=== PATIENT | female | born 1985 | race Caucasian/White ===

== ENCOUNTER 2019-09-30 14:14 | Outpatient (CLI) | payer OTHER, SELFPAY ==
--- NOTE | ~2019-09-30 | MM_ITS ---
EXAMINATION: MM screening roel BI w didi HISTORY: Screening mammogram TECHNIQUE: Craniocaudal and mediolateral oblique 3-D tomosynthesis images were obtained and synthetic 2-D images were generated. CAD analysis was submitted and interpreted. COMPARISON: No prior mammogram is available for comparison at this institution. BREAST PARENCHYMAL COMPOSITION: There are scattered areas of fibroglandular density. FINDINGS: There is a focal asymmetry in the lower inner quadrant of the left breast anteriorly. There is no mammographic evidence for malignancy in the right breast. IMPRESSION: 1. Focal left breast asymmetry. 2. Additional mammographic views and possible breast ultrasound are recommended. BI-RADS Category 0: Incomplete: Needs additional imaging evaluation. Reviewed, dictated and finalized at location A. IMPRESSION: 1. Focal left breast asymmetry. 2. Additional mammographic views and possible breast ultrasound are recommended . BI-RADS Category 0: Incomplete: Needs additional imaging evaluation.
== END 2019-09-30 14:15 | disposition home or self-care (01) ==
PROVIDERS: PCP Family Medicine; Visit Provider Surgery Plastic and Reconstructive Surgery
DX: Z12.31 Encounter for screening mammogram for malignant neoplasm of breast (principal); R92.8 Other abnormal and inconclusive findings on diagnostic imaging of breast
CPT/HCPCS: 77063; 77067

== ENCOUNTER 2019-10-04 11:45 | Outpatient (CLI) | payer OTHER, SELFPAY ==
--- NOTE | ~2019-10-04 | MMUS_ITS ---
EXAMINATION: MM diagnostic mammo unilat LT, US breast LT limited HISTORY: 09/30/2019 screening mammogram report of focal asymmetry in the lower inner quadrant of left b reast anteriorly TECHNIQUE: Additional 3-D tomosynthesis images of the left breast were performed and synthetic 2-D im ages were generated. Rolled medial craniocaudal and rolled lateral craniocaudal views. CAD analysis w as submitted and interpreted. High resolution upper inner and lower inner quadrant left breast ultras ound was performed. COMPARISON: 09/30/2019 bilateral digital screening mammogram FINDINGS: MAMMOGRAPHIC FINDINGS: No reproducible mass or architectural distortion is detected. ULTRASOUND: There is no evidence of focal abnormal solid or cystic lesion in the vicinity of the 09/30/2019 screeni ng mammogram report of abnormality in the anterior aspect of the lower inner quadrant of the left mao ast IMPRESSION: 1. No mammographic evidence of malignancy 2. Routine mammographic screening is recommended BI-RADS Category 1: Negative Reviewed, dictated and finalized at location A. IMPRESSION: 1. No mammographic evidence of malignancy 2. Routine mammographic screening is recommended BI-RADS Category 1: Negative
== END 2019-10-04 11:46 | disposition home or self-care (01) ==
LOC: ANHIMG 11:46
PROVIDERS: PCP Family Medicine; Visit Provider Surgery Plastic and Reconstructive Surgery
DX: N64.4 Mastodynia (principal); N62 Hypertrophy of breast
CPT/HCPCS: 76642; 77065

== ENCOUNTER 2019-10-12 00:20 | Outpatient (CLI) | payer OTHER, SELFPAY | END 2019-10-12 00:21 | disposition home or self-care (01) | LOC: ANHCOVIDDT 00:20 | PROVIDERS: PCP Family Medicine; Visit Provider Surgery Plastic and Reconstructive Surgery | DX: Z01.812 Encounter for preprocedural laboratory examination (principal); N62 Hypertrophy of breast; Z11.59 Encounter for screening for other viral diseases | CPT/HCPCS: 87635; C9803; U0003 ==

== ENCOUNTER 2019-10-15 01:28 | Day surgery (SDC) | payer OTHER, SELFPAY ==
[2019-10-08 17:33] VITALS: BMI 34.0
[2019-10-15] VITALS (10 sets, daily range): BP systolic 117–147; BP diastolic 63–106; PULSE 95–102; RESP 16–20; TEMP 36.4–36.8; O2SAT 95–99
[2019-10-15] MEDS: LACTATED RINGERS 1,000 ML 30 ML IV CONT ×2 (11:35→16:58)
[2019-10-15 11:47] LABS: Urine Cotinine NEGATIVE
--- NOTE | 2019-10-15 13:33 | WPDHPUPDATE1 ---
History and Physical Update Update Date/Time: 10/15/19 13:33 History and Physical has been reviewed, including an updated exam of the patient. There are NO changes in the patient's condition. Risks, benefits, and alternatives have been discussed and questions answered. Patient agrees to proceed with procedure.
--- NOTE | 2019-10-15 13:53 | WPDANESEPPF ---
Anes - Initial Pre Proc Eval Procedure: Operation Date: 10/15/19 13:30 Proposed Procedures p Bilateral Reduction Mammoplasty - Francisco Henry MD Date/Time: 10/15/19 13:53 Surgeon: Francisco Henry MD Pre Op Diagnosis: Macromastia Patient Data Age: 34 Gender: F Height: 5 ft 10.5 in Weight: 109.3 kg Last Vital Signs Temp 36.8 C 10/15/19 11:15 Pulse 100 10/15/19 11:15 Resp 16 10/15/19 11:15 BP 120/85 10/15/19 11:15 Pulse Ox 98 10/15/19 11:15 Allergies Allergy/AdvReac Type Severity Reaction Status Date / Time cheese Allergy Swelling Verified 10/08/19 17:44 of Lip/Tongue/Throat latex Allergy Redness of Verified 10/08/19 17:44 Skin Home Medications Medication Instructions Recorded Confirmed Type ascorbate calcium (vitamin C) 500 500 mg PO DAILY 09/10/19 10/08/19 History mg tablet cholecalciferol (vitamin D3) 10 10 mcg PO DAILY 09/10/19 10/08/19 History mcg (400 unit) capsule diclofenac sodium 1 % topical gel 2 gm TOPICAL QID 09/10/19 10/08/19 History mecobalamin (vitamin B12) 1,000 1,000 mcg PO DAILY 09/10/19 10/08/19 History mcg chewable tablet multivitamin 1 cap PO DAILY 09/10/19 10/08/19 History docusate sodium 100 mg capsule 100 mg PO BID #14 cap 10/02/19 10/08/19 Rx hydrocodone 5 mg-acetaminophen 325 1 tablet PO Q6H PRN #15 tablet 10/02/19 10/08/19 Rx mg tablet ondansetron HCl 4 mg tablet 4 mg PO Q8H PRN #14 tablet 10/02/19 10/08/19 Rx Laboratory Tests 10/15/19 11:34 Cotinine Negative Patient hx anesthesia problems: none Family hx anesthesia problems: none PMFSH Past Medical History Medical History Mitral valve prolapse Surgical History Surgical History History of dilatation and curettage History of knee surgery History of removal of cyst Social History Social History Gender identity (if verbalized by the patient): Female Anes - Eval Final PreProcedure Day of Procedure 10/15/19 13:53 Patient weight: obese Heart: regular rate and rhythm Lungs: clear to auscultation Airway: Mallampati scale class II Neurological: alert and oriented Last oral intake: >/= 8 hours ASA classification: II Emergent: no Anesthetic plan: proceed Anesthesia type and monitoring: general LMA and standard monitoring Informed Consent: The patient's anesthetic plan and its attendant risks and benefits were discussed with the patient/family/POA. Questions were solicited and answers provided to the satisfaction of the patient/family/POA.
--- NOTE | 2019-10-15 13:59 | PM.PROC ---
Procedure Note - Detailed Date of procedure: 10/15/19 Pre-op diagnosis: Macromastia Post-op diagnosis: same Procedure performed: Bilateral Breast Reduction Description of procedure: She is here today for bilateral breast reduction. Previously and again today the risks, benefits, alternatives were discussed in extensive detail. I wanted her to be very realistic about the risks involved as well as expectations. We discussed aftercare and what to monitor for. She understands we can never guarantee final breast size and there will always be asymmetry. I was very upfront and honest about the risks of sensation change and even nipple loss (). Made sure answered all of her questions to her satisfaction today and consent was obtained. She was marked in the preoperative holding area with their verification. The patient was taken to the operating room placed supine on the operating table. Anesthesia was provided by anesthesiology. She was prepped and draped in a standard sterile fashion. A surgical time-out was taken. Stab incisions were made and I tumessed with a tumescent solution. I marked out the nipple-areolar complex at 42 mm. I then de-epithelialized the pedicle. The pedicle was well left well more than 2 cm in thickness. I then removed the inferior portion of the breast as well as the central keel to get shape based on preoperative planning. At this point copiously irrigated with saline solution and verified a strict hemostasis. I reapproximated the pillars using a 2-0 PDS as well as along the IMF. I tailor tacked the breast into place with chiki. She was placed in a sitting position. I verified the nipple-areolar complex position based on preoperative markings, intraoperative measurements, and observation which were in full agreement. This nipple-areolar complex was marked at 42 mm in size. I then placed supine and de-epithelialized this. Nipple-areolar complex was inset with 3-0 Monocryl. I closed the vertical incision with 3-0 Monocryl in the IMF with 3-0 stratafix. Then everything was closed using a running subcuticular 4-0 Monocryl followed by Steri-Strips. A dressing was placed followed by surgical bra. Patient was awoke and taken to PACU without difficulty. All instrument sponge counts were correct at the end of the case. Anesthesia: GLMA Surgeon: Francisco Henry MD Estimated blood loss (mL): 50 Drains: No Packing: No Pathology: yes Complications: No immediate complications Condition: stable Disposition: PACU Findings: Inverted T Superior medial pedicle. Tissue removed: Right: 1107.9 grams Left: 1064.4 grams
[2019-10-15] MEDS: ceFAZolin 2 GM/D5W 50 ML 2 GM/50 ML BAG IVPB (14:15)
--- NOTE | 2019-10-15 14:18 | SUR.PREOP ---
Called Pt's (per pt's request) to inform him that pt just left preop area for surgery and that we will call him when she get into the recovery area to update
--- NOTE | 2019-10-15 17:54 | SUR.PHASEI ---
1750 family notified of pt well being
[2019-10-15] MEDS: ONDANSETRON INJ 4 MG/2 ML VIAL IV PUSH (18:00)
--- NOTE | 2019-10-15 19:36 | SUR.PHASEII ---
pts family returned at 1915 as instructed. pt is experiencing nausea at the time/acknowledges understanding. 1930 pt continues to experience nausea and wants to sleep longer-stating she is having a hard time holding her head up/support provided/pt tearful. 1939 spouse to op rec for support
--- NOTE | 2019-10-15 20:16 | SUR.PHASEII ---
2005 pt states she is feeling less nauseated. states she has voided on herself on would like to get dressed now. assistance provided dressing. states she is read to do go home.
== END 2019-10-15 20:15 | disposition home or self-care (01) ==
PROVIDERS: PCP Family Medicine; Visit Provider Surgery Plastic and Reconstructive Surgery
PROC: 0HBV0ZZ Excision of Bilateral Breast, Open Approach (ICD-10-PCS; CPT 19318; principal; 2019-10-15 13:30)
DX: N62 Hypertrophy of breast (principal); N60.32 Fibrosclerosis of left breast; N60.31 Fibrosclerosis of right breast; N60.42 Mammary duct ectasia of left breast; N60.41 Mammary duct ectasia of right breast; N60.22 Fibroadenosis of left breast; N60.21 Fibroadenosis of right breast; N60.81 Other benign mammary dysplasias of right breast; I34.1 Nonrheumatic mitral (valve) prolapse; E66.9 Obesity, unspecified; Z68.34 Body mass index [BMI] 34.0-34.9, adult
CPT/HCPCS: 19318; 36415; 80307; 88305; A9270; J0131; J0171; J0690; J1170; J2250; J2405; J2704; J3010; J7120

== ENCOUNTER 2020-04-13 13:43 | Outpatient (CLI) | payer OTHER, SELFPAY ==
--- NOTE | ~2020-04-13 | US_ITS ---
EXAMINATION: US breast LT limited HISTORY: Patient with recurring drainage from the periareolar region of the left breast status post reduction mammoplasty in September 2019. TECHNIQUE: Limited left breast ultrasound is performed in the periareolar region of the left breast. FINDINGS: There is a small elevated. Skin thickening of the 12:00 location adjacent to the left nippl e. No underlying fluid collection is identified. There is some apparent edema in the subareolar aspec t of the left breast IMPRESSION: No current fluid collection of the left breast. BI-RADS Category 2: Benign finding(s). Reviewed, dictated and finalized at location A. [employer]
== END 2020-04-13 13:44 | disposition home or self-care (01) ==
LOC: ANHIMG 13:50
PROVIDERS: PCP Family Medicine; Visit Provider Surgery Plastic and Reconstructive Surgery
DX: S21.002A Unspecified open wound of left breast, initial encounter (principal); X58.XXXA Exposure to other specified factors, initial encounter; N64.52 Nipple discharge
CPT/HCPCS: 76642

== ENCOUNTER → 2020-07-01 15:08 | Outpatient (REF) | payer OTHER, SELFPAY | LOC: ANHLAB 15:08 | PROVIDERS: PCP Family Medicine; Visit Provider Surgery Plastic and Reconstructive Surgery | DX: S21.002A Unspecified open wound of left breast, initial encounter (principal); N61.1 Abscess of the breast and nipple | CPT/HCPCS: 88305 ==

== ENCOUNTER 2021-08-26 15:22 | Outpatient (CLI) | payer OTHER, SELFPAY ==
--- NOTE | ~2021-08-26 | MM_ITS ---
EXAMINATION: MM screening roel BI w didi HISTORY: Screening mammogram TECHNIQUE: Craniocaudal and mediolateral oblique 3-D tomosynthesis images were obtained and synthetic 2-D images were generated. CAD analysis was submitted and interpreted. COMPARISON: December 04, 2019, 09/30/2019 BREAST PARENCHYMAL COMPOSITION: The breasts are heterogeneously dense, which may obscure small masses . FINDINGS: There are changes of interval reduction mammoplasty. There is no suspicious mass, calcifica tion, or architectural distortion to suggest malignancy in either breast. IMPRESSION: 1. No mammographic evidence of malignancy. 2. Recommend routine screening mammography beginning at age 40. BI-RADS Category 1: Negative Reviewed, dictated and finalized at location A.
== END 2021-08-26 15:23 | disposition home or self-care (01) ==
PROVIDERS: PCP Family Medicine; Visit Provider Surgery Plastic and Reconstructive Surgery
DX: Z12.31 Encounter for screening mammogram for malignant neoplasm of breast (principal)
CPT/HCPCS: 77063; 77067

== ENCOUNTER 2023-11-25 07:33 | Outpatient (CLI) | payer OTHER, SELFPAY ==
--- NOTE | ~2023-11-25 | MM_ITS ---
EXAMINATION: MM screening roel BI w didi HISTORY: Screening mammogram TECHNIQUE: Craniocaudal and mediolateral oblique 3-D tomosynthesis images were obtained and synthetic 2-D images were generated. CAD analysis was submitted and interpreted. COMPARISON: 08/26/2021, 09/30/2019 BREAST PARENCHYMAL COMPOSITION:Dense: The breasts are heterogeneously dense, which may obscure small masses. FINDINGS: There is a more conspicuous 7 mm mass at the inner, slightly lower right breast. There is s uggestion of developing asymmetric density at the left subareolar region. No suspicious calcification s. IMPRESSION: More conspicuous 7 mm mass at the inner, slightly lower right breast. Spot compression views and ult rasound are recommended for further evaluation. Suggestion of developing asymmetric density at the left subareolar region. Spot compression views, a nd possibly ultrasound, recommended for further evaluation. BI-RADS Category 0: Incomplete: Needs additional imaging evaluation. Reviewed, dictated and finalized at location M. IMPRESSION: More conspicuous 7 mm mass at the inner, slightly lower right breast. Spot com pression views and ultrasound are recommended for further evaluation. Suggestion of developing asymmetric density at the left subareolar region. Spo t compression views, and possibly ultrasound, recommended for further evaluatio n. BI-RADS Category 0: Incomplete: Needs additional imaging evaluation.
== END 2023-11-25 07:34 | disposition home or self-care (01) ==
LOC: ANHIMG 07:40
PROVIDERS: PCP Family Medicine; Visit Provider Family Medicine
DX: Z12.31 Encounter for screening mammogram for malignant neoplasm of breast (principal); R92.8 Other abnormal and inconclusive findings on diagnostic imaging of breast
CPT/HCPCS: 77063; 77067

== ENCOUNTER 2024-01-30 10:45 | Outpatient (CLI) | payer OTHER, SELFPAY ==
--- NOTE | ~2024-01-30 | MMUS_ITS ---
EXAMINATION: MM diagnostic roel BI w didi, US breast BI complete HISTORY: Follow-up bilateral breast asymmetries TECHNIQUE: Additional 3-D tomosynthesis images of the breasts were performed and synthetic 2-D images were generated. CAD analysis was submitted and interpreted. High resolution bilateral complete breas t ultrasound was performed. COMPARISON: Comparison to multiple prior studies sequentially, with oldest reviewed study dated 08/2019. BREAST PARENCHYMAL COMPOSITION: Dense: The breasts are heterogeneously dense, which may obscure small masses FINDINGS: MAMMOGRAPHIC FINDINGS: Focal areas of asymmetry in the periareolar location of the left breast are less apparent with spot c ompression views. No discrete masses are identified. No suspicious architectural distortion or calcif ications. There are changes of bilateral breast reduction surgery. ULTRASOUND: Complete US of all 4 quadrants of the breast/s and retroareolar region was reviewed. Right breast: At 8:00, 9 cm from the nipple, there is a 7 mm cyst. At 11:00 near the nipple there is a septated 5 mm cyst. No suspicious masses to suggest malignancy. Left breast: Normal heterogeneous echotexture without focal solid or cystic mass. IMPRESSION: 1. No evidence for malignancy in either breast. Benign findings. 2. Routine yearly screening mammogram and regular clinical breast examination are recommended. BI-RADS Category 2: Benign finding(s). Reviewed, dictated and finalized at location B. IMPRESSION: 1. No evidence for malignancy in either breast. Benign findings. 2. Routine yearly screening mammogram and regular clinical breast examination a re recommended. BI-RADS Category 2: Benign finding(s).
== END 2024-01-30 10:46 | disposition home or self-care (01) ==
LOC: ANHIMG 10:46
PROVIDERS: PCP Family Medicine; Visit Provider Family Medicine
DX: R92.8 Other abnormal and inconclusive findings on diagnostic imaging of breast (principal)
CPT/HCPCS: 76641; 77062; 77066; G0279